=== PATIENT | male | born 1980 | race Two or more races ===

== ENCOUNTER 2020-01-11 21:19 | Emergency (ER) | payer OTHER, SELFPAY ==
[2020-01-11 21:23] VITALS: BP 171/95; PULSE 88; RESP 16; TEMP 36.7; O2SAT 99; BMI 34.4
--- NOTE | 2020-01-11 21:30 | ED.WOUNDLAC ---
HPI - Wound/Laceration General Chief Complaint: Wound/Laceration Stated Complaint: lac Time Seen by Provider: 01/11/20 21:23 Source: patient and occupational medicine specialist Mode of arrival: ambulatory Limitations: no limitations History of Present Illness HPI narrative: This is a 39-year-old male who presents after having sustained a laceration to the right index finger tip while cleaning a washer meat and does not recall his last tetanus shot. Otherwise patient states the bleeding is controlled and he has minimal pain. Related Data Allergies Allergy/AdvReac Type Severity Reaction Status Date / Time No Known Allergies Allergy Verified 01/11/20 21:25 Review of Systems Review of Systems: Pertinent positives and negatives as stated in HPI 10 point review of systems is otherwise negative. [facility] Past Medical History Source: nursing notes reviewed Medical History Patient denies significant medical history Social History Social History Advance Directives: No Physical Exam Vital Signs: Vital Signs: Vital Signs Temp Pulse Resp BP Pulse Ox 01/11/20 21:23 98.0 F 88 16 171/95 H 99 Body Mass Index 34.4 VITAL SIGNS: Reviewed. GENERAL: Well developed, well nourished, in no acute distress. HEAD: Normocephalic/atraumatic, EYES: PERRLA, EOMI intact without pain, no nystagmus/pallor/icterus noted EARS: Ext canals without abnormality, TMs non-bulging and non-erythematous NOSE: Nares patent bilateral OROPHARYNX: no oral lesions noted, posterior pharynx clear and non-erythematous without noted tonsillar enlargement/erythema/exudates NECK: Supple, no adenopathy LUNGS: Normal breath sounds. No adventitious sounds or accessory muscle use. SpO2<99> CARDIOVASCULAR: Regular rate and rhythm without noted murmurs, no JVD or lower extremity edema. ABDOMEN: Soft, non-tender, non-distended with bowel sounds. No rigidity. No guarding. No palpable masses or hernias noted MUSCULOSKELETAL: No tenderness, deformities, or effusions noted on gross inspection. EXTREMITIES: No cyanosis, clubbing or edema; RIGHT INDEX FINGER: There is a noted 2 cm laceration to the tip of the right index finger that is hemostatic with good capillary refill and sensation is intact. SKIN: Inspection of the skin reveals no rashes, ulcerations, jaundice, pallor, or petechiae. NEUROLOGIC: Alert and oriented x 4. Strength and sensation to light touch were grossly intact x 4. Course Course Course Narrative: This is a 39-year-old male with history and clinical presentation consistent with small laceration to the right index finger without gross contamination and patient tolerated repair of the laceration well and received a Tdap here in the emergency department. He was instructed return in 7 days for removal of the sutures. Procedures Laceration Laceration 1: Site: hand ( right index finger) Side (If applicable): right Size (cm): 2 Description: linear Depth: simple, single layer Local Anesthetic: lidocaine 2% Amount of anesthesia used (mL): 5 Pre-repair: wound explored, irrigated extensively and deep structures intact Skin layer closed with: nylon Size (cm): 4-0 Number of sutures: 3 Technique: simple, interrupted Discharge Plan Discharge Clinical Impression: Laceration Patient Disposition: Home, Self-Care Instructions: Finger Laceration (ED) Additional Instructions: 1. Tylenol 1000 mg, por v?a oral, cada 6 horas seg?n sea necesario para controlar el dolor. No exceda los 4000 mg en 24 horas. 2. Ibuprofeno 400 mg, por v?a oral con leche o alimentos, cada 6 horas seg?n sea necesario para controlar el dolor. 3. Puede limpiar la herida con agua y jab?n y luego secarla suavemente con la aplicaci?n de un nafisa?ento antibi?katherine. 4. Regrese a jerez proveedor de atenci?n primaria o al departamento de emergencias para que le retiren las suturas en 7 d?as. El paciente y / o la odalis reconocen carmen comprendido los resultados (seg?n corresponda), el diagn?stico, el plan de tratamiento, la necesidad de seguimiento y los s?ntomas que deber?an impulsar el regreso a la libertad de emergencias. Referrals: Beatrice Alba MD [Primary Care Provider] - 2 days ( suture removal in 7 days from right index finger. Patient received Tdap here in the emergency department) Print Language: Occitan
[2020-01-11] MEDS: Lidocaine HCl 2 % MPF 5 ML VIAL INFILTRATI (21:58)
== END 2020-01-11 22:10 | disposition home or self-care (01) ==
PROVIDERS: Emergency Provider Student in an Organized Health Care Education/Training Program; PCP Internal Medicine
DX: S61.210A Laceration without foreign body of right index finger without damage to nail, initial encounter (principal); S60.511A Abrasion of right hand, initial encounter; M79.644 Pain in right finger(s); W31.89XA Contact with other specified machinery, initial encounter; Y93.89 Activity, other specified; Y92.9 Unspecified place or not applicable; Y99.0 Civilian activity done for income or pay; Z23 Encounter for immunization
CPT/HCPCS: 12001; 90471; 90715; 99283; 99284

== ENCOUNTER 2020-01-18 09:16 | Emergency (ER) | payer OTHER, SELFPAY ==
--- NOTE | 2020-01-18 10:03 | ED_ITS ---
HPI - General Adult General Chief complaint: Wound/Laceration Stated complaint: suture removal Time Seen by Provider: 01/18/20 10:02 Source: patient, old records reviewed and sign language interpreter Mode of arrival: ambulatory Limitations: no limitations History of Present Illness complaint: suture removal Onset (ago): week(s) (1) Location: right and upper extremity (index finger 3 sutures) Radiation: non-radiation Relieving factors: none Exacerbating factors: none Associated symptoms: denies other symptoms Treatments prior to arrival: other (sutured 7 days ago) Related Data Allergies Allergy/AdvReac Type Severity Reaction Status Date / Time No Known Allergies Allergy Verified 01/11/20 21:25 Review of Systems Review of Systems: Constitutional : No Fever, No Chills ENT/Mouth : No sore throat, No Rhinorrhea Eyes: No Eye Pain, No Swelling, No Redness Cardiovascular : No Chest Pain, No SOB Respiratory : No Cough, No Sputum Musculoskeletal : No joint pain, No Myalgias, No Joint Swelling Skin : No Skin Lesions, no skin rash PMFSH Past Medical History Medical History Patient denies significant medical history Social History Social History (Updated 01/18/20 @ 10:06 by Lexii Claire DO) Smoking Status: Never smoker Use of substances other than those prescribed or required for medical reasons: No Advance Directives: No Advance Directives Information Provided: No Physical Exam Vital Signs: Appearance: Alert. Oriented X3. No acute distress. Neck: Normal inspection. Neck supple. CVS: Pulses normal. Respiratory: No respiratory distress. Breath sounds normal. Abdomen: Soft and nontender. Skin: Skin warm and dry. Normal skin color. Normal skin turgor. index finger 3 sutures c/d/i, well healed no signs of infection Neuro: Oriented X 3. No motor deficit. No sensory deficit. Procedures Procedure Narrative Procedure Narrative: verbal consent, removed 3 sutures R tip of index finger, c/d/i ws avulsion injury, no signs of infection, cleansed with betadine, bandaid applied, given wound care instructions Discharge Plan Discharge Clinical Impression: Encounter for removal of sutures Patient Disposition: Home, Self-Care Instructions: Stitches Removal (ED) Additional Instructions: return to ED for any worsening symptoms or concerns for the next 5 days wear a bandaid, do not soak area in dishes/pool, okay to shower and wash hands, monitor for signs of redness, fevers, drainage Print Language: Bruneian
[2020-01-18 10:04] VITALS: BP 157/102; PULSE 81; RESP 18; TEMP 37.2; O2SAT 97; BMI 29.2
--- NOTE | 2020-01-18 10:07 | PC.NURSE ---
DR MATTHEWS AT BEDSIDE REMOVED THREE STITCHES FROM THE RIGHT POINTER FINGER, PT DENIES PAIN AT THIS TIME
== END 2020-01-18 10:12 | disposition home or self-care (01) ==
PROVIDERS: Emergency Provider Emergency Medicine; PCP Internal Medicine
DX: Z48.02 Encounter for removal of sutures (principal)
CPT/HCPCS: 99283

== ENCOUNTER 2021-04-28 08:54 | Outpatient (REF) | payer OTHER, SELFPAY ==
[2021-04-28 09:34] LABS: Hematocrit 46.9 % (42.0-52.0); Hemoglobin 15.7 g/dl (14.0-18.0); Mean Corpuscular HGB Conc 33.5 g/dl (31.0-36.0); Mean Corpuscular Hemoglobin 28.2 pg (27.0-33.0); Mean Corpuscular Volume 84.2 fL (80.0-98.0); Mean Platelet Volume 10.8 fL (9.4-12.4); Platelet Count 215 X10*3/uL (160-400); Red Blood Count 5.57 X10*6/uL (4.60-5.80); Red Cell Distribution Width 13.4 % (11.0-16.0); White Blood Count 5.9 X10*3/uL (4.8-10.8)
[2021-04-28 09:47] LABS: Estimated Average Glucose 120 mg/dL; Hemoglobin A1c % 5.8 %
[2021-04-28 09:54] LABS: Alanine Aminotransferase 19 U/L (0-40); Albumin Level 4.5 g/dL (3.5-5.0); Alkaline Phosphatase 74 U/L (39-117); Anion Gap 10 (12-20); Aspartate Amino Transferase 19 U/L (5-37); Bilirubin Total 0.5 mg/dL (0.0-1.0); Blood Urea Nitrogen 9 mg/dL (9-16); Calcium 9.9 mg/dL (8.4-10.2); Carbon Dioxide 30 mmol/L (22-29); Chloride 107 mmol/L (96-108); Cholesterol 211 mg/dL; Estimated Glomerular Filt Rate > 60; Glucose Fasting 98 mg/dL (60-99); HDL Cholesterol 53 mg/dL; LDL Cholesterol Calculated 141 mg/dl; Potassium 5.6 mmol/L (3.3-5.1); Sodium 141 mmol/L (135-145); Total Protein 7.2 g/dL (6.5-8.0); Triglycerides 89 mg/dL
[2021-04-28 10:13] LABS: Syphilis Screen Nonreactive (Nonreactive)
[2021-04-28 10:14] LABS: TSH reflex Free T4 1.06 uIU/mL (0.32-4.0)
[2021-04-28 10:15] LABS: HBS Num1 1.23 mIU/mL (0-7.99); HBc Num1 0.05 S/CO (0.00-0.79); HIV AB/AG Nonreactive (Nonreactive); HIV Num 1 0.07 S/CO (0.00-0.99); Hepatitis B Core Antibody Nonreactive (Nonreactive); ~HepC Num1 0.15 S/CO (0.00-0.79); ~Hepatitis B Surface Antibody NONREACTIVE (Nonreactive); ~Hepatitis C Antibody Nonreactive (Nonreactive)
[2021-04-28 10:21] LABS: HBsAGNum1 0.24 S/CO (0.00-0.99); Hepatitis B Surface Antigen Negative (Negative)
== END 2021-04-28 08:55 | disposition home or self-care (01) ==
LOC: HO.LAB 08:54
PROVIDERS: PCP Internal Medicine; Visit Provider Physician Assistant
DX: Z11.3 Encounter for screening for infections with a predominantly sexual mode of transmission (principal); Z11.4 Encounter for screening for human immunodeficiency virus [HIV]; Z13.29 Encounter for screening for other suspected endocrine disorder; E78.00 Pure hypercholesterolemia, unspecified
CPT/HCPCS: 36415; 80053; 80061; 83036; 84443; 85027; 86704; 86706; 86780; 86803; 87340; 87389

== ENCOUNTER 2023-05-10 07:52 | Outpatient (AMB) | payer OTHER, SELFPAY ==
--- NOTE | 2023-05-10 07:54 | A.OFFPC_ITS ---
Vital Signs 05/10/23 07:56 Height 5 ft 11 in Weight 213 lb BMI 29.7 BP 120/72 Blood Pressure Location Lt brachial Position Sitting Intake Visit Reasons: PE Intake Note: Patient here for a physical exam Sole Layer Required: No Accompanied by: Self / Same As Patient Allergies No Known Allergies Allergy (Verified 05/10/23 08:08) Medication List - Last Reconciled 05/10/23 by Beatrice Freitas MD omeprazole 20 mg PO DAILY 90 days valacyclovir 1,000 mg PO BID 7 days Tobacco use date assessed: 05/10/23 Dental Screening Dental Screen Date: 05/10/23 Did you have a dental visit in the last 12 months?: No Did you have a dental problem in the last 6 months where you did not have access to dental care?: No Was dental information given to patient?: Patient has dentist HPI HPI Comments History of Present Illness Details This is a 43-year-old male that comes for his physical exam. He severely dozed off while sitting and reading, watching TV, writing as a passenger in a car for 1 hour without a break and lying down to rest in the afternoon when circumstances permit with an [place] score Scale of 12. He also snores since 02/25/2023 and I will order sleep study. He also has some hearing loss and will have a hearing test. Has gain weight. Denies any chest pain or shortness of breath. REPLACED BY [facility] Medical History (Updated 05/10/23 @ 08:20 by Beatrice Freitas MD) Patient denies significant medical history Surgical History (Updated 05/10/23 @ 08:10 by Beatrice Freitas MD) H/O lumbar discectomy Family History Father Prostate cancer, Onset Age: 56 Mother No problems noted. 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 1. Little interest or pleasure in doing things: not at all 2. Feeling down, depressed, or hopeless: not at all 3. Trouble falling or staying asleep, or sleeping too much: not at all 4. Feeling tired or having little energy: not at all 5. Poor appetite or overeating: not at all 6. Feeling bad about yourself - or that you are a failure or have let yourself or your family down: not at all 7. Trouble concentrating on things, such as reading the newspaper or watching television: not at all 8. Moving or speaking so slowly that other people could have noticed. Or the opposite - being so fidgety or restless that you have been moving around a lot more than usual: not at all 9. Thoughts that you would be better off or of hurting yourself in some way: not at all Total score: 0 Depression Screening Interpretation: Negative Depression Screening Done: Yes 60913 - PHQ-9 Billing: Yes Source: Developed by Drs. Duke Waterman, Zamzam Araya, Johann Jones and colleagues, with an educational brittney from [employer]. Thrive Questionnaire Date Thrive assessed: 05/10/23 I am a: Patient What is your living situation today?: I have a steady place to live Within the past 12 months, did the food you bought not last and you didn't have the money to get more?: Never true Within the past 12 months, did you worry whether your food would run out before you got money to buy more?: Never true Do you have trouble paying for medicines?: No Do you have trouble getting transportation to medical appointments?: No Do you have trouble paying your heating and electricity bill?: No Do you have trouble taking care of your child, family member or friend?: No Do you have trouble with day-to-day activities such as bathing, preparing meals, shopping, managing finances, etc.?: No Are you currently unemployed and looking for a job?: No Are you interested in more education?: No Please select the resources that you would like help with: None Currently or been in a relationship where the following occur: no concerns reported THRIVE Score: 0 AUDIT C Alcohol Use Questionnaire (AUDIT-C) 1. How often do you have a drink containing alcohol?: Monthly or less 2. How many drinks containing alcohol do you have on a typical day when you are drinking?: 1 or 2 3. How often do you have six or more drinks on one occasion?: Never Total Score: 1 Score Reviewed/Action Taken: No RAN-7 AMB Questionnaire RAN-7 Date RAN - 7 assessed: 05/10/23 Feeling nervous, anxious, or on edge: 0 = Not at all Not being able to stop or control worryin = Not at all Worrying too much about different things: 0 = Not at all Trouble relaxin = Not at all Being so restless that it is hard to sit still: 0 = Not at all Becoming easily annoyed or irritable: 0 = Not at all Feeling afraid as if something awful might happen: 0 = Not at all Total RAN-7 score (0-4 normal; 5-9 mild; 10-14 moderate; 15-21 severe): 0 Source: Developed by Drs. Duke Waterman, Zamzam Araya, Johann Jones and colleagues, with an educational brittney from [employer]. RAN-7 Assessment Billing RAN-7 Assessment Tool: RAN-7 Assessment 23131 Review of Systems Const All systems reviewed & are unremarkable except as noted in HPI and below Eyes Reports no additional complaints, Denies change in vision and Denies other visual disturbances ENT Reports hearing loss Card Denies chest pain at rest, Denies chest pain with activity, Denies edema, Denies irregular heart rhythm, Denies claudication, Denies dyspnea, Denies dyspnea on exertion, Denies orthopnea, Denies paroxysmal nocturnal dyspnea and Denies slow heart rate Resp Denies cough, Denies dyspnea and Denies dyspnea on exertion GI Denies abdominal pain, Denies change in bowel habits, Denies excessive flatus, Denies nausea and Denies vomiting Denies urinary hesitancy, Denies urinary incontinence and Denies urinary urgency Musc Denies abnormal gait, Denies atrophy, Denies deformity and Denies limited range of motion Skin/Breast Denies bleeding lesions, Denies changing lesions and Denies rash Neuro Denies abnormal gait, Denies behavioral changes, Denies confusion and Denies lack of coordination Psych Denies behavioral changes and Denies confusion Physical exam (Primary Care) Vital Signs: Last Vital Signs BP 120/72 05/10/23 07:56 BMI result Body Mass Index 29.7 Tobacco/Smoking Status: Tobacco use Status Tobacco use date assessed 05/10/23 05/10/23 08:01 Patient Tobacco Use Status Never used Tobacco 05/10/23 08:11 e-Cigarette/Vaping Use Never Used 05/10/23 08:11 PHQ-9: PHQ-9 Score PHQ-9: Total score 0 05/10/23 08:12 Depression Screening Interpretation: Negative Thrive Assessment: Date of Thrive Assessment Date Thrive assessed 05/10/23 05/10/23 08:01 Currently or been in a relationship where the following occur: no concerns reported Const General: No confusion Orientation/consciousness: patient oriented x3 and No confusion HENMT Head: Yes normal to inspection, Yes normocephalic and Yes atraumatic Ears: external ears normal Eyes General: appearance normal, both eyes and all related structures Eyelids: Yes eyelids normal Conjunctivae: conjunctivae normal Neck Neck: Yes normal visual inspection and Yes supple Resp Effort & Inspection: normal respiratory effort Auscultation: clear to auscultation bilaterally Cardio Jugular venous distension: no JVD Rate: regular rate Rhythm: regular rhythm Heart sounds: S1 normal heart sound present and S2 normal heart sound present GI Inspection: Yes normal to inspection Palpation (GI): Soft to palpation and nontender Auscultation: normal bowel sounds Skin General skin exam: no rashes or lesions noted Neuro General: patient oriented x3, no focal motor deficits and No confusion Extrem General: Yes full ROM Psych Appearance: grossly normal Assessment and Plan Assessment & Plan (1) Annual physical exam: Code(s): Z00.00 - Encounter for general adult medical examination without abnormal findings Plan: Repeat in a year. Orders: Orders Lipid Panel Today E78.5 - Hyperlipidemia, unspecified, Z00.00 - Encounter for general adult medical examination without abnormal findings RT home sleep study Today R40.0 - Somnolence Comprehensive [place]. Panel Fast Today Z00.00 - Encounter for general adult medi ninfa examination without abnormal findings ECG 12 lead EKG Today E87.5 - Hyperkalemia HIV Ab/Ag Today Z11.3 - Encounter for screening for infections with a predominantly sexual mode of transmission Referrals Speech and Hearing Referral H91.90 - Unspecified hearing loss, unspecified ear Medications: Refilled omeprazole 20 mg PO DAILY 90 days 90 caps 3RF H93.11 - Tinnitus, right ear valacyclovir 1,000 mg PO BID 7 days 14 tabs 2RF Coding Level of Care Code Est Pt Prev Care 40-64y(61811) Diagnoses Annual physical exam Z00.00 Additional Codes RNA-7 Assessment Billing - RAN-7 Assessment Tool: RAN-7 Assessment 19339 ([id number]) Time Spent (min) 32
[2023-05-10 07:56] VITALS: BP 120/72; BMI 29.7
== END 2023-05-10 08:21 | disposition home or self-care (01) ==
PROVIDERS: PCP Internal Medicine; Visit Provider Internal Medicine
DX: Z00.00 Encounter for general adult medical examination without abnormal findings (principal)
CPT/HCPCS: 99396

== ENCOUNTER → 2023-05-12 07:23 | Outpatient (REF) | payer OTHER, SELFPAY ==
--- NOTE | 2023-05-12 07:29 | ECG_ITS ---
Test Reason : E87.5 - Hyperkalemia Blood Pressure : / mmHG Vent. Rate : 060 BPM Atrial Rate : 060 BPM P-R Int : 144 ms QRS Dur : 088 ms QT Int : 390 ms P-R-T Axes : 051 039 011 degrees QTc Int : 390 ms Normal sinus rhythm Normal ECG No previous ECGs available Referred By: Beatrice Freitas Electronically Signed By:JUNE MARK
[2023-05-12 08:42] LABS: Alanine Aminotransferase 27 U/L (0-40); Alkaline Phosphatase 80 U/L (39-117); Anion Gap 10 (12-20); Aspartate Amino Transferase 19 U/L (5-37); Bilirubin Total 0.5 mg/dL (0.0-1.0); Blood Urea Nitrogen 11 mg/dL (9-16); Calcium 8.7 mg/dL (8.4-10.2); Carbon Dioxide 25 mmol/L (22-29); Chloride 110 mmol/L (96-108); Cholesterol 233 mg/dL (<200); Estimated Glomerular Filt Rate > 60; Glucose Fasting 97 mg/dL (60-99); HDL Cholesterol 47 mg/dL (>40); LDL Cholesterol Calculated 168 mg/dL (<100); Potassium 4.2 mmol/L (3.3-5.1); Sodium 141 mmol/L (135-145); Total Protein 6.8 g/dL (6.5-8.0); Triglycerides 92 mg/dL (<150)
[2023-05-12 09:15] LABS: HIV AB/AG Nonreactive (Nonreactive); HIV Num 1 0.05 S/CO (0.00-0.99)
== END ==
LOC: HO.CARD 07:23
PROVIDERS: PCP Internal Medicine; Visit Provider Internal Medicine
DX: Z00.00 Encounter for general adult medical examination without abnormal findings (principal); Z11.3 Encounter for screening for infections with a predominantly sexual mode of transmission; Z11.4 Encounter for screening for human immunodeficiency virus [HIV]; E87.5 Hyperkalemia; E78.5 Hyperlipidemia, unspecified
CPT/HCPCS: 36415; 80053; 80061; 87389; 93005

== ENCOUNTER → 2023-05-12 07:29 | Outpatient (BNV) | payer OTHER, SELFPAY | PROVIDERS: PCP Internal Medicine; Visit Provider Internal Medicine | DX: E87.5 Hyperkalemia (principal) | CPT/HCPCS: 93010 ==

== ENCOUNTER → 2023-06-21 15:54 | Outpatient (REF) | payer OTHER, SELFPAY | LOC: HO.SL 15:54 | PROVIDERS: PCP Internal Medicine; Visit Provider Internal Medicine | DX: G47.33 Obstructive sleep apnea (adult) (pediatric) (principal); R40.0 Somnolence | CPT/HCPCS: 95806 ==

== ENCOUNTER → 2023-06-21 16:01 | Outpatient (BNV) | payer OTHER, SELFPAY | PROVIDERS: PCP Internal Medicine; Visit Provider Internal Medicine | DX: G47.33 Obstructive sleep apnea (adult) (pediatric) (principal) | CPT/HCPCS: 95806 ==

== ENCOUNTER 2023-07-20 08:30 | Outpatient (REF) | payer OTHER, SELFPAY | END 2023-07-20 08:31 | disposition home or self-care (01) | LOC: HO.SH 08:30 | PROVIDERS: Visit Provider Internal Medicine | DX: Z01.118 Encounter for examination of ears and hearing with other abnormal findings (principal); H90.3 Sensorineural hearing loss, bilateral; H93.11 Tinnitus, right ear | CPT/HCPCS: 92557; 92567; 92588 ==

== ENCOUNTER 2024-05-15 08:37 | Outpatient (AMB) | payer OTHER, SELFPAY ==
--- NOTE | 2024-05-15 08:41 | A.OFFPC_ITS ---
Vital Signs 05/15/24 08:42 Height 5 ft 11 in Weight 219 lb BMI 30.5 BP 130/70 Blood Pressure Location Lt brachial Position Sitting Intake Visit Reasons: PE Intake Note: Patient here for a physical exam, c/o back pain, rash on head Gas System Operator Required: Yes Gas System Operator Language: Ward Helper Name: Beatrice Freitas MD Information Interpreted: non-clinical & clinical Accompanied by: Self / Same As Patient Allergies No Known Allergies Allergy (Verified 05/15/24 08:58) Medication List - Last Reconciled 05/15/24 by Beatrice Freitas MD omeprazole 20 mg PO DAILY 90 days valacyclovir 1,000 mg PO BID 7 days Tobacco use date assessed: 05/15/24 Dental Screening Dental Screen Date: 05/15/24 Did you have a dental visit in the last 12 months?: No Did you have a dental problem in the last 6 months where you did not have access to dental care?: No Was dental information given to patient?: Patient has dentist HPI HPI Comments History of Present Illness Details The patient is a 44-year-old male presenting for an annual physical examination. He reports a history of sciatica with pain radiating to his left leg, which originated after a back surgery in 1997. The symptoms include pain and numbness primarily in the left leg. He also complains of hemorrhoids, without recent episodes of bleeding. The patient has been managing GERD symptoms effectively with omeprazole. His cholesterol levels are elevated, but treatment thresholds are not met according to the [place] Risk Score of 4%. Has seborrheic dermatitis of scalp and would like dermatology referral. Family history is significant for prostate cancer in the father. The patient has not had a colonoscopy, though he is at screening age. He keeps current with vaccinations, with the last tetanus booster due in 2029. - Tetanus booster last administered in ; next due in 2029 - [place] Risk Score calculated at 4% , indicating low cardiovascular risk - Recommended initial colorectal cancer screening by colonoscopy - Discussed lifestyle modifications for cholesterol management, including diet and exercise PFSH Surgical History H/O lumbar discectomy Family History Father Prostate cancer, Onset Age: 56 Mother No problems noted. 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 1. Little interest or pleasure in doing things: not at all 2. Feeling down, depressed, or hopeless: not at all 3. Trouble falling or staying asleep, or sleeping too much: not at all 4. Feeling tired or having little energy: not at all 5. Poor appetite or overeating: not at all 6. Feeling bad about yourself - or that you are a failure or have let yourself or your family down: not at all 7. Trouble concentrating on things, such as reading the newspaper or watching television: not at all 8. Moving or speaking so slowly that other people could have noticed. Or the opposite - being so fidgety or restless that you have been moving around a lot more than usual: not at all 9. Thoughts that you would be better off or of hurting yourself in some way: not at all Total score: 0 Depression Screening Interpretation: Negative Depression Screening Done: Yes 85950 - PHQ-9 Billing: Yes Source: Developed by Drs. Duke Waterman, Zamzam Araya, Johann Jones and colleagues, with an educational brittney from [employer]. Thrive Questionnaire Date Thrive assessed: 05/15/24 I am a: Patient What is your living situation today?: I have a steady place to live Within the past 12 months, did the food you bought not last and you didn't have the money to get more?: Sometimes True Within the past 12 months, did you worry whether your food would run out before you got money to buy more?: Sometimes True Do you have trouble paying for medicines?: No Do you have trouble getting transportation to medical appointments?: No Do you have trouble paying your heating and electricity bill?: No Do you have trouble taking care of your child, family member or friend?: No Do you have trouble with day-to-day activities such as bathing, preparing meals, shopping, managing finances, etc.?: No Are you currently unemployed and looking for a job?: No Are you interested in more education?: Yes Please select the resources that you would like help with: None Currently or been in a relationship where the following occur: Controlled Financially THRIVE Score: 3 AUDIT C Alcohol Use Questionnaire (AUDIT-C) 1. How often do you have a drink containing alcohol?: 2-4 times a month 2. How many drinks containing alcohol do you have on a typical day when you are drinking?: 1 or 2 3. How often do you have six or more drinks on one occasion?: Never Total Score: 2 Score Reviewed/Action Taken: No RAN-7 AMB Questionnaire RAN-7 Date RAN - 7 assessed: 05/15/24 Feeling nervous, anxious, or on edge: 1 = Several days Not being able to stop or control worryin = Several days Worrying too much about different things: 1 = Several days Trouble relaxin = Several days Being so restless that it is hard to sit still: 0 = Not at all Becoming easily annoyed or irritable: 0 = Not at all Feeling afraid as if something awful might happen: 0 = Not at all Total RAN-7 score (0-4 normal; 5-9 mild; 10-14 moderate; 15-21 severe): 4 Source: Developed by Drs. Duke Waterman, Zamzam Araya, Johann Jones and colleagues, with an educational brittney from [employer]. RAN-7 Assessment Billing RAN-7 Assessment Tool: RAN-7 Assessment 14442 Review of Systems Const All systems reviewed & are unremarkable except as noted in HPI and below Card Denies chest pain at rest, Denies chest pain with activity, Denies edema, Denies irregular heart rhythm, Denies claudication, Denies dyspnea, Denies dyspnea on exertion, Denies orthopnea, Denies paroxysmal nocturnal dyspnea and Denies slow heart rate Resp Denies cough, Denies dyspnea and Denies dyspnea on exertion GI Denies abdominal pain, Denies change in bowel habits, Denies excessive flatus, Denies nausea and Denies vomiting Denies urinary hesitancy, Denies urinary incontinence and Denies urinary urgency Skin/Breast Reports lesions Neuro Denies lack of coordination Physical exam (Primary Care) Vital Signs: Last Vital Signs BP 130/70 05/15/24 08:42 BMI result Body Mass Index 30.5 BMI Assessment/Plan discussion: High BMI High, discussed plan: lifestyle, weight reduction and dietary Tobacco/Smoking Status: Tobacco use Status Tobacco use date assessed 05/15/24 05/15/24 08:46 Patient Tobacco Use Status Never used Tobacco 05/15/24 08:46 e-Cigarette/Vaping Use Never Used 05/15/24 08:46 PHQ-9: PHQ-9 Score PHQ-9: Total score 0 05/15/24 08:46 Depression Screening Interpretation: Negative Thrive Assessment: Date of Thrive Assessment Date Thrive assessed 05/15/24 05/15/24 08:46 Currently or been in a relationship where the following occur: Controlled Financially Const Orientation/consciousness: patient oriented x3 HENMT Head: Yes normal to inspection, Yes normocephalic and Yes atraumatic Ears: external ears normal Eyes General: appearance normal, both eyes and all related structures Eyelids: Yes eyelids normal Conjunctivae: conjunctivae normal Neck Neck: Yes normal visual inspection and Yes supple Resp Effort & Inspection: normal respiratory effort Auscultation: clear to auscultation bilaterally Cardio Jugular venous distension: no JVD Rate: regular rate Rhythm: regular rhythm Heart sounds: S1 normal heart sound present and S2 normal heart sound present GI Inspection: Yes normal to inspection Palpation (GI): Soft to palpation and nontender Auscultation: normal bowel sounds Skin General skin exam: no rashes or lesions noted Neuro General: patient oriented x3 and no focal motor deficits Extrem General: Yes full ROM Psych Appearance: grossly normal Coding Level of Care Code Est Pt Level 3 (17584) Est Pt Prev Care 40-64y(03738) Diagnoses Annual physical exam Z00.00 Pure hypercholesterolemia E78.00 Hyperlipidemia type: pure hypercholesterolemia Seborrheic dermatitis of scalp L21.9 Left sided sciatica M54.32 Additional Codes PHQ-9 - 19805 - PHQ-9 Billing: Yes ([id number]) RAN-7 Assessment Billing - RAN-7 Assessment Tool: RAN-7 Assessment 18939 ([id number]) Time Spent (min) 35 Assessment & Plan Assessment & Plan (1) Annual physical exam: Code(s): Z00.00 - Encounter for general adult medical examination without abnormal findings Category: Medical (2) HLD (hyperlipidemia): Code(s): E78.5 - Hyperlipidemia, unspecified Category: Medical Qualifiers: Hyperlipidemia type: pure hypercholesterolemia Qualified Code(s): E78.00 - Pure hypercholesterolemia, unspecified (3) Seborrheic dermatitis of scalp: Code(s): L21.9 - Seborrheic dermatitis, unspecified Category: Medical (4) Left sided sciatica: Code(s): M54.32 - Sciatica, left side Category: Medical Plan The patient's hyperlipidemia will be managed with annual monitoring. We have opted not to initiate medication since the [place] Risk Score is 4%. Lifestyle modifications, especially diet and exercise, were recommended. We will schedule the patient for a colonoscopy at the hospital to begin the recommended screening for colorectal cancer. For sciatica, gabapentin was prescribed to be started at bedtime, with a gradual increase to a potential three times daily if tolerated due to its sedative properties. The patient is aware of the need to monitor for drowsiness. There are no current interventions required for hemorrhoids without symptoms. Patient was informed and verbally consented to the use of an ambient scribe for clinic note documentation during this visit. I discussed with the patient the importance of beginning colorectal cancer screening now that he is 44 years old, as well as weighing the options for when and how to conduct this screening. We reviewed his elevated cholesterol and the management plan, emphasizing lifestyle modifications such as diet and exercise. I explained the [place] Risk Score calculation and its implications for current treatment decisions. For sciatica, I provided a detailed explanation of gabapentin's use, potential side effects, specifically sedation, and the need to start treatment at night to assess tolerance. Lastly, we discussed the risk factors associated with his family history of prostate cancer, ensuring understanding of the need for continued vigilance. Orders: Orders XR lumbar spine 2-3V Today M54.32 - Sciatica, left side Comprehensive [place]. Panel Fast Today E78.00 - Pure hypercholesterolemia, unspecified Lipid Panel Today E78.5 - Hyperlipidemia, unspecified Referrals Open Access Screening Colonoscopy Referral Z12.12 - Encounter for screening f or malignant neoplasm of rectum Pain Management Referral M54.32 - Sciatica, left side Dermatology Referral L21.9 - Seborrheic dermatitis, unspecified Medications: New gabapentin 300 mg PO TID 30 days 90 caps 0RF selenium sulfide 1% (Dandruff Shampoo (selenium sulfide)) lather into wet hair; leave in place for approximately 3 mins ; rinse 5 mL topical 2XW 14 days 207 mL 1RF Patient Instructions: - Initiate the gabapentin prescription as directed, starting with an evening dose, and monitor for drowsiness. - Schedule the colonoscopy procedure as discussed at the hospital. - Continue to manage dietary habits and engage in regular physical activity to address cholesterol levels. - Report any new or worsening symptoms related to sciatica or hemorrhoids to the office immediately. - Maintain a schedule for follow-up visits to monitor cholesterol levels annually.
[2024-05-15 08:42] VITALS: BP 130/70; BMI 30.5
--- OUTSIDE RECORDS SUMMARY | 2024-05-15 09:14 | XMS_ITS | Encounter Summary ---
Author Organization [facility] Address [address] [place] [address] [address] [place] [address] Care Team Providers Care Cryptological Technician Name Role Phone Unavailable Primary Care Provider Unavailabl e Encounter Details Date Type Department Care Team (Latest Contact Info) Description 11/29/2021 Abstract [facility] CONVERSIONS Dental, Provider, DDS Social History Tobacco Use Types Packs/Day Years Used Date Smoking Tobacco: Never Assessed Sex and Gender Information Value Date Recorded Sex Assigned at Male 01/10/2022 10:30 AM EDT Legal Sex Male 10:30 AM EDT Gender Identity Male 01/10/2022 10:30 AM EDT Sexual Orientation Straight 01/10/2022 10 :30 AM EDT documented as of this encounter Plan of Treatment Upcoming Encounters Date Type Department Care Team (Late st Contact Info) Description 06/14/2024 10:30 AM EDT Office Visit [facility] ADULT DENTAL [address] [place] [address] Mariano New DDS [address] [place] [address] 06/28/2024 9:00 AM EDT Office Visit [facility]ULT [facility] [address] [place] [address] Serene Hill [address] [place] [address] documented as of this encounter Visit Diagnoses Not on filedocumented in this encounter
--- OUTSIDE RECORDS SUMMARY | 2024-05-15 09:14 | XMS_ITS | Encounter Summary ---
Author Organization [facility] Address [address] [place] [address] [address] [place] [address] Care Team Providers Care Concrete Form Setter Name Role Phone Unavailable Primary Care Provider Unavailabl e Encounter Details Date Type Department Care Team (Latest Contact Info) Description 05/13/2020 Abstract [facility] CONVERSIONS Dental, Provider, DDS Social History Tobacco [...] Description 06/14/2024 10:30 AM EDT Office Visit [facility] ADULT DENTAL [address] [place] [address] Mariano New DDS [address] [place] [address] 06/28/2024 9:00 AM EDT Office Visit [facility] ADULT DENT[facility] [address] [place] [address] Serene Hill [address] [place] [address] documented as of this encounter Visit Diagnoses Not on filedocumented in this encounter
--- OUTSIDE RECORDS SUMMARY | 2024-05-15 09:14 | XMS_ITS | Encounter Summary ---
Author Organization [facility] Address [address] [place] [address] [address] [place] [address] Care Team Providers Care New Grad Rn Name Role Phone Unavailable Primary Care Provider Unavailabl e Reason for Visit * Reason Comments Scaling And Root Planing SAPNA WREN Encounter Details Date Type Department Care Team ([facility] st Contact Info) Description 05/08/2024 2:00 PM EST Office Visit [facility] ADULT DENTAL [address] [place] [address] Serene Hill [address] [place] [address] Periodontal disease (Primary Dx); Dental calculus; Defective dental zoroastrianism Social History Tobacco Use Types Packs/Day Years Used Date Smoking Tobacco: Never Passive Smoke Exposure: Never Smokeless Tobacco: Never Alcohol Use Standard Drinks/Week Comments Never 0 (1 standard drink = 0.6 oz pur e alcohol) Sex and Gender Information Value Date Recorded Sex Assigned at Male 01/10/2022 10:30 AM EDT Legal Sex Male 10:30 AM EDT Gender Identity Male 01/10/2022 10:30 AM EDT Sexual Orientation Straight 01/10/2022 10 :30 AM EDT documented as of this encounter Last Filed Vital Signs Vital Sign Reading Time Taken Comments Blood Pressure 128/82 05/08/2024 2:06 PM EST Pulse - - Temperature - - Respiratory Rate - - Oxygen Saturation - - Inhaled Oxygen Concentration - - Weight - - Height - - Body Mass Index - - documented in this encounter Progress Notes * Serene Hill - 05/08/2024 2:00 PM EST Patient ID: Ambrose Lopes is a 44 y.o. male. Time Out: Timeout Date: 05/08/24, Timeout Time: 1411 (SRP UL, LL quads) Location: [facility] Tooth: Maxilla and Mandible Procedure: Scaling and Root Planing, Limited exam by Shaq Ricardo Verified the above with patient, assistant therapy aide, and provider. Confirmed via patient's chart, intraorally and by radiographs. Paper Products Supervisor: not applicable Medical Hx: Vitals: Blood pressure 128/82. Medications, Med Hx reviewed with patient and updated in chart. Pt's C/C: Pain #6 at the root Facial. Dr. New did Limited Exam and DX caries on #6 F, F5. Dr New to do zoroastrianism. Treatment Provided Dental procedures in this visit D4342 - PERIODONTAL SCALING AND ROOT PLANING - 1 TO 3 TEETH PER QUADRANT UL (Completed) Service provider: Serene Hill [place] provider: Mariano New DDS D4342 - PERIODONTAL SCALING AND ROOT PLANING - 1 TO 3 TEETH PER QUADRANT LL (Completed) Service provider: Serene Hill [place] provider: Mariaon New DDS D1330 - ORAL HYGIENE INSTRUCTIONS (Completed) Service provider: Serene Hill [place] provider: Mariano New DDS D9450 - CASE PRESENTATION, DETAILED AND EXTENSIVE TREATMENT PLANNING (Completed) Service provider: Serene Hill [place] provider: Mariano New DDS Topical: 20% Benzocaine Anesthesia: 2% Lidocaine (Xylocaine) w/ 1:100,000 epinephrine Number of Cartridges: 1 Injection Type: Buccal infiltration, Palatal infiltration, Mental nerve block, and mandibular incisal. Confirmed profound anesthesia. Oral Cancer Screening: No lesions Head/Neck Exam: No Lesions Instruments Used: Ultrasonic Scalers and Hand Scalers Fluoride: N/A Calculus: Light and Moderate Plaque: Light and Moderate Stain: discolored teeth at exposed roots Bleeding: Light and Moderate Gingiva: Recession- generalized and pink OH: Fair Oral hygiene instructions provided to patient including brushing technique and flossing. Recommendations: [place] two times daily, modified josé technique, Floss daily, Electric toothbrush, Soft bristle toothbrush, [place] Tongue, Anti-sensitivity toothpaste Recall Frequency: SRP UR, LR quads NV: SRP UR, LR quads and Dr. New for [place]. Hygienist: Serene Hill RDH * Mariano New DDS - 05/08/2024 2:00 PM EST Dental procedures in this visit D4342 - PERIODONTAL SCALING AND ROOT PLANING - 1 TO 3 TEETH PER QUADRANT UL (Completed) Service provider: Serene Hill Billing provider: Mariano New DDS D4342 - PERIODONTAL SCALING AND ROOT PLANING - 1 TO 3 TEETH PER QUADRANT LL (Completed) Service provider: Serene Hill [place] provider: Mariano New DDS D1330 - ORAL HYGIENE INSTRUCTIONS (Completed) Service provider: Serene Morse provider: Mariano New DDS D9450 - CASE PRESENTATION, DETAILED AND EXTENSIVE TREATMENT PLANNING (Completed) Service provider: Serene Morse provider: Mariano New DDS Patient ID: Ambrose Lopes is a 44 y.o. male. Time Out: Timeout Date: 05/08/24, Timeout Time: 1411 (SRP UL, LL quads) Location: [facility] Tooth: Maxilla Procedure: Exam, X-rays, and Prophylaxis Verified the above with patient, assistant therapy aide, and provider. Confirmed via patient's chart, intraorally and by radiographs. Paper Products Supervisor: not applicable Chief Complaint Patient presents with Scaling And Root Planing UL, LL quads Medical Hx: Vitals: Blood pressure 128/82. Past Medical History: Diagnosis Date GERD (gastroesophageal reflux disease) Glaucoma Periodontal disease Medications: Outpatient Encounter Medications as of 05/08/2024 Medication Sig Dispense Refill dorzolamide-timolol (Cosopt) 2-0.5 % ophthalmic solution PLACE 1 DROP IN THE RIGHT EYE TWICE DAILY,10-15 MINUTES AFTER brimonidine latanoprost (Xalatan) 0.005 % ophthalmic solution PLACE 1 DROP IN THE RIGHT EYE AT BEDTIME omeprazole (PriLOSEC) [address] capsule Take 1 capsule by mouth Once per day. No facility-administered encounter medications on file as of 05/08/2024. Subjective: Pain: not present mild discomfort on # 6 Duration: >5 days Objective: Tooth: #6 and #16 Radiographs Taken: Result after SRP Radiographic Findings: Partially erupted # 16 Clinical Findings: Defective resin on # 6 Swelling: NO Endo Testing: N/A Perio: Due for SRP left side Other Findings: Restore # 6 V buccal Diagnosis: Defective zoroastrianism Assessment/Plan: AARON X Rays SRP Viri Prescriptions: No Pt tolerated procedure well, all questions answered. Dismissed in good condition. NV: , DANIELA Superintendent Communications: Serene Hill Dentist: Mariano New DDS documented in this encounter Plan of Treatment Upcoming Encounters Date Type Department Care Team (Late st Contact Info) Description 06/14/2024 10:30 AM EDT Office Visit [facility] ADULT DENTAL [address] [place], [place] [id number] Mariano New DDS [address] [place] [address] 06/28/2024 9:00 AM EDT Office Visit [facility] ADULT DENT[facility] [address] [place] [address] Serene Hill [address] [place] [address] Scheduled Orders Name Type Priority Associated Diagnoses Orde r Schedule 6 FF(V) 6 FF(V) RESIN-BASED COMPOSITE - 1 SURF, ANTERIOR Dental Routine [address] arting 05/08/2024 ORAL HYGIENE INSTRUCTIONS Dental Routine 1 Occurrences starting 05/08/2024 CASE PRESENTATION, DETAILED AND EXTENSIVE TREATMENT PLANNING Dental Routine 1 Occurrences starting 05/08/2024 documented as of this encounter Procedures Procedure Name Priority Date/Time Associated Diagnosis Comments LL PERIODONTAL SCALING AND ROOT PLANING - 1 TO 3 TEETH PER QUADRANT Routine 05/08/2024 2:00 PM EST Periodontal disease Dental calculus UL PERIODONTAL SCALING AND ROOT PLANING - 1 TO 3 TEETH PER QUADRANT Routine 05/08/2024 2:00 PM EST Periodontal disease Dental calculus ORAL HYGIENE INSTRUCTIONS Routine 05/08/2024 2:00 PM EST Periodontal disease Dental calculus CASE PRESENTATION, DETAILED AND EXTENSIVE TREATMENT PLANNING Routine 05/08/2024 2:00 PM EST Periodontal disease Dental calculus 14 O COMPOSITE FILLING Routine 12:00 AM EST 28 B(V) COMPOSITE FILLING Routine 05/08/2024 12:00 AM EST 21 B(V) COMPOSITE FILLING Routine 05/08/2024 12:00 AM EST 20 B(V) COMPOSITE FILLING Routine 05/08/2024 12:00 AM EST 13 O COMPOSITE FILLING Routine 12:00 AM EST documented in this encounter Visit Diagnoses Diagnosis Periodontal disease- Primary Unspecified gingival and periodontal disease Dental calculus Accretions on teeth Defective dental zoroastrianism Unspecified unsatisfactory zoroastrianism of tooth documented in this encounter
--- OUTSIDE RECORDS SUMMARY | 2024-05-15 09:14 | XMS_ITS | Clinical Summary ---
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 Periodontal disease 03/18/2024 Dental calculus 03/18/2024 Generalized gingival recession 03/18/2024 Normal oral exam 02/16/2024 Encounters Date Type Department Care Team Description 05/08/2024 2:00 PM EST Office Visit [facility] [address] [place] [address] [address] Periodontal disease (Primary Dx); Dental calculus; Defective dental judaism 03/18/2024 10:00 AM EST Office Visit [facility] [address] [place] [address] [address] [place] Periodontal disease (Primary Dx); Dental calculus; Generalized gingival recession 03/15/2024 Telephone [facility] [address] [place] [address] Angel Hillaris 02/16/2024 3:30 PM EST Office Visit [facility] [address] [place] [address] Mariano New DDS Normal oral exam (Primary Dx) from Last 3 Months Immunizations Name Administration Dates Next Due INFLUENZA INJECTABLE QUADRIV ALANT CCIIV4 MDCK Multi-dose vial 01/09/2019 Influenza Injectable Quadriv alant Preservative Free IIV4 MDCK 12/09/2022,01/21/2022 Influenza injectable quadriv alent IIV4 with preservative 12/14/2017,12/16/2016 Influenza injectable quadrivalent preservative f ree 01/25/2021,12/19/2018 Pfizer Covid-19 Vaccine 12+ 02/19/2021 Tdap 01/11/2020,03/18/2016 Social History Tobacco Use Types Packs/Day Years Used Date Smoking Tobacco: Never Passive Smoke Exposure: Never Smokeless Tobacco: Never Tobacco Cessation:Counseling Given: No Alcohol Use Standard Drinks/Week Comments Never 0 (1 standard drink = 0.6 oz pur e alcohol) Sex and Gender Information Value Date Recorded Sex Assigned at Male 01/10/2022 10:30 AM EDT Legal Sex Male 10:30 AM EDT Gender Identity Male 01/10/2022 10:30 AM EDT Sexual Orientation Straight 01/10/2022 10 :30 AM EDT Last Filed Vital Signs Vital Sign Reading Time Taken Comments Blood Pressure 128/82 05/08/2024 2:06 PM EST Pulse - - Temperature - - Respiratory Rate - - Oxygen Saturation - - Inhaled Oxygen Concentration - - Weight - - Height - - Body Mass Index - - Plan of Treatment Upcoming Encounters Date Type Department Care Team (Late st Contact Info) Description 06/14/2024 10:30 AM EDT Office Visit [facility] [address] [place] [address] Mariano New DDS [address] [place] [address] 06/28/2024 9:00 AM EDT Office Visit [facility] [address] [place] [address] [address] [place] [address] Health Maintenance Due Date Last Done Comments CT Colonography 1979 Colonoscopy 1979 Colorectal Cancer Screening 1979 Depression Screening 1979 FIT DNA/Cologuard 1979 FIT 1979 FOBT 1979 HIV Screening 1979 Lipid Panel 1979 SDOH Screening 1979 Sigmoidoscopy 1979 Alcohol/Substance Use Screening 1991 Family Planning (PISQ) 1994 Hepatitis C Screening 1997 Hepatitis B Vaccines (1 of 3 - 19+ 3-dose series) 1998 COVID-19 Vaccine ( season) 2023 02/19/2021, 04/08/2020, 03/18/2020 Dental Oral Exam 08/17/2024 02/16/2024, , 04/02/2020, Additional history exists Dental Prophylaxis 09/16/2024 03/18/2024, 0 11/29/2021, 05/13/2020, Additional history exists Dental X-Ray: Bitewings 02/16/2025 02/16/20 24, 11/29/2021, 04/02/2020, Additional history exists Tobacco Screening 05/08/2025 05/08/2024 Dental X-Ray: Full Mouth 02/16/2027 024, 08/05/2022, 11/29/2021, Additional history exists Zoster Vaccines (1 of 2) 2029 DTaP/Tdap/Td Vaccines (3 - Td or Tdap) 01/10/2030 01/11/2020, 03/18/2016 RSV Patients and Patients Aged 60 years or older (1 - 1-dose 75+ series) 2054 Influenza Vaccine Completed 01/09/2024, , 01/21/2022, Additional history exists HIB Vaccines Aged Out No longer eligi ble based on patient's age to complete this topic HPV Vaccines Aged Out No longer eligi ble based on patient's age to complete this topic Hepatitis A Vaccines Aged Out No long er eligible based on patient's age to complete this topic IPV Vaccines Aged Out No longer eligi ble based on patient's age to complete this topic Meningococcal Vaccine Aged Out No nasir temi eligible based on patient's age to complete this topic Pneumococcal Vaccine: Pediatrics (0 to 5 Years) and At-Risk Patients (6 to 49) Years) Aged Out No longer eligible based on patient's age to complete this topic RSV under 20 months Aged Out No longe r eligible based on patient's age to complete this topic Rotavirus Vaccines Aged Out No longer eligible based on patient's age to complete this topic Procedures Procedure Name Priority Date/Time Associated Diagnosis Comments CASE PRESENTATION, DETAILED AND EXTENSIVE TREATMENT PLANNING Routine 05/08/2024 2:00 PM EST Periodontal disease Dental calculus ORAL HYGIENE INSTRUCTIONS Routine 05/08/2024 2:00 PM EST Periodontal disease Dental calculus LL PERIODONTAL SCALING AND ROOT PLANING - [...] O COMPOSITE FILLING Routine 12:00 AM EST CASE PRESENTATION, DETAILED AND EXTENSIVE TREATMENT PLANNING Routine 03/18/2024 10:00 AM EST Periodontal disease Dental calculus Generalized gingival recession ORAL HYGIENE INSTRUCTIONS Routine 03/18/2024 10:00 AM EST Periodontal disease Dental calculus Generalized gingival recession PROPHYLAXIS - ADULT Routine 03/18/2024 1 0:00 AM EST Periodontal disease Dental calculus PERIODIC ORAL EVALUATION - ESTABLISHED PATIENT Routine 02/16/2024 3:30 PM EST CASE PRESENTATION, DETAILED AND EXTENSIVE TREATMENT PLANNING Routine 02/16/2024 3:30 PM EST INTRAORAL - COMPLETE SERIES OF RADIOGRAPHIC IMAGES Routine 02/16/2024 3:30 PM EST from Last 3 Months Insurance [facility] [employer] STAND ADULT
--- OUTSIDE RECORDS SUMMARY | 2024-05-15 09:14 | XMS_ITS | Encounter Summary ---
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 Name Role Phone Unavailable Primary Care Provider Unavailabl e Encounter Details Date Type Department Care Team (Latest Contact Info) Description 10/29/2018 Abstract [facility] CONVERSIONS Dental, Provider, DDS Social History Tobacco [...] Description 06/14/2024 10:30 AM EDT Office Visit [facility] [address] [place] [address] Mariano New DDS [address] [place] [address] 06/28/2024 9:00 AM EDT Office Visit [facility] [address] [place] [address] [address] [place] [address] documented as of this encounter Visit Diagnoses Not on filedocumented in this encounter
== END 2024-05-15 09:17 | disposition home or self-care (01) ==
PROVIDERS: PCP Internal Medicine; Visit Provider Internal Medicine
DX: Z00.00 Encounter for general adult medical examination without abnormal findings (principal); E78.00 Pure hypercholesterolemia, unspecified; L21.9 Seborrheic dermatitis, unspecified; M54.32 Sciatica, left side

== ENCOUNTER → 2024-05-15 08:37 | Outpatient (BNVA) | payer OTHER, SELFPAY | PROVIDERS: PCP Internal Medicine; Visit Provider Internal Medicine | DX: Z00.01 Encounter for general adult medical examination with abnormal findings (principal); E78.00 Pure hypercholesterolemia, unspecified; L21.9 Seborrheic dermatitis, unspecified; M54.32 Sciatica, left side | CPT/HCPCS: 96127; 99212; 99396 ==

== ENCOUNTER 2024-05-16 06:43 | Outpatient (REF) | payer OTHER, SELFPAY ==
--- NOTE | ~2024-05-16 | XR_ITS ---
EXAMINATION: XR LUMBOSACRAL SPINE CLINICAL INFORMATION: M54.32 - Sciatica, left side COMPARISON: 12/29/2016. TECHNIQUE: Three views of the lumbosacral spine. FINDINGS: There is a trace levoconvex scoliosis. There is a normal lumbar lordosis. There is no subluxation. There are no fractures, compression deformities, or suspicious bone lesions. There is mild to moderate disc and facet degeneration L4-S1. Disc spaces otherwise preserved. Normal-appearing SI joints and sacrum. Mild vascular calcifications in the soft tissues. XR/XR lumbar spine 2-3V IMPRESSION: 1. No acute findings lumbar spine. 2. Mild to moderate degenerative spondylosis relatively confined to L4-S1. Electronically signed by: Kash Nur MD 05/20/2024 09:31 AM EDT
[2024-05-16 08:00] LABS: Alanine Aminotransferase 45 U/L (0-40); Albumin Level 4.2 g/dL (3.5-5.0); Alkaline Phosphatase 80 U/L (39-117); Anion Gap 10 (12-20); Aspartate Amino Transferase 38 U/L (5-37); Bilirubin Total 0.6 mg/dL (0.0-1.0); Blood Urea Nitrogen 13 mg/dL (9-16); Carbon Dioxide 26 mmol/L (22-29); Chloride 110 mmol/L (96-108); Cholesterol 238 mg/dL (<200); Estimated Glomerular Filt Rate > 60; Glucose Fasting 99 mg/dL (60-99); HDL Cholesterol 51 mg/dL (>40); LDL Cholesterol Calculated 171 mg/dL (<100); Potassium 4.4 mmol/L (3.3-5.1); Sodium 142 mmol/L (135-145); Total Protein 7.5 g/dL (6.5-8.0); Triglycerides 81 mg/dL (<150)
== END 2024-05-16 06:44 | disposition home or self-care (01) ==
LOC: HO.XRAY 06:43
PROVIDERS: PCP Internal Medicine; Visit Provider Internal Medicine
DX: M54.32 Sciatica, left side (principal); E78.5 Hyperlipidemia, unspecified; E78.00 Pure hypercholesterolemia, unspecified
CPT/HCPCS: 36415; 72100; 80053; 80061

== ENCOUNTER → 2024-05-16 07:07 | Outpatient (BNV) | payer OTHER, SELFPAY | PROVIDERS: PCP Internal Medicine; Visit Provider Radiology Diagnostic Radiology | DX: M54.32 Sciatica, left side (principal) | CPT/HCPCS: 72100 ==

== ENCOUNTER 2024-06-07 08:24 | Outpatient (AMB) | payer OTHER, SELFPAY ==
--- NOTE | 2024-06-07 08:32 | A.OFFVIS_ITS ---
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 He reports the onset of back pain radiating to the back of the left leg, beginning 2 months ago with no specific triggering event. The patient has a history of lumbar discectomy in [place] in 2015. He reports a pattern recognizable from his pre-surgical symptoms. 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 The patient indicates cold weather worsens his discomfort and affects his sleep. Gabapentin has been prescribed and recently started, following a stop in ibuprofen use. An X-ray reveals mild to moderate degenerative spondylosis relatively confined to L4-S1, with a plan for initial physical therapy before considering further imaging. Denies any fever or chills, abdominal or groin pain, weakness, foot drop, bladder or bowel dysfunction or saddle anesthesia. - Onset: Approximately 2 months ago, chronic low back pain. - Location: Originating in the lower back, radiating to the back of the left leg and into left calf. - Quality: Similar to pre-surgical symptoms; reminiscent of nerve compression. Pinching, stabbing, tightness, cramping, radiating. - Radiation: Extending to the back of the left leg. - Aggravating Factors: Bending, standing on left toe, physically demanding work, prolonged standing. - Relieving Factors: None specifically mentioned, although patient has begun gabapentin therapy. - Impact: Interferes with physical work, especially housekeeping tasks; affects sleep especially in colder conditions. 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 - Analgesia: Currently using gabapentin prescribed by PCP; previously used ibuprofen, now discontinued. - Adverse Effects: None specifically reported from gabapentin during the conversation. - Activities of Daily Living: Pain impacts physical work capability and sleep quality. - Aberrant Drug Related Behaviors: None reported or suspected; patient is compliant with medication use as directed. [facility] Medical History Daytime somnolence Seborrheic dermatitis of scalp GERD (gastroesophageal reflux disease) Hearing loss Tinnitus, right HLD (hyperlipidemia) Left sided sciatica Lumbar degenerative disc disease Surgical History H/O lumbar discectomy Family History Father Prostate cancer, Onset Age: 56 Mother No problems noted. 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 - Neurological: Denies numbness, tingling radiating to the calf, or muscle spasms. All systems reviewed & are unremarkable except as noted in HPI and below Physical Exam Vital Signs: Last Vital Signs Pulse 87 06/07/24 08:38 BP 132/85 06/07/24 08:38 Pulse Ox 97 06/07/24 08:38 Oxygen Delivery Method Room Air 06/07/24 08:38 BMI result Body Mass Index 30.4 General: Appears afebrile. Alert and oriented. Mood and affect appropriate. Follows and participates in conversation appropriately. Respiratory effort is unlabored. No cough. Able to transition from sit to stand unassisted. Ambulates with bilaterally normal heel strike and toe off, standing on toes on the left increases left back and left calf pain. General: Yes no CVA tenderness Back/Spine/Pelvis Other: Limited lumnbar ROM due to pain. No limping. Can flex forward to 70-75 degrees and extend to 5-10 degrees before experiencing lumbar pain. Demonstrates 5/5 strength of quadriceps bilaterally as well as flexion/dorsiflexion of bilateral feet against resistance. 2+ pedal pulses bilaterally. Straight leg rise with dorsiflexion negative bilaterally. +2 patellar and achilles reflexes bilaterally. Facet loading test positive bilaterally. Jessica sign, Dmitri?s, Pelvic compression and Stinchfield tests are negative bilaterally. No groin pain with I/E hip rotations. Valsalva maneuver negative. Back: no CVA tenderness Cervical Spine: cervical ROM normal and No Cervical spine tenderness Thoracic/Lumbar Spine: thoracic and lumbar spine normal to inspection, Thoracic/lumbar spine scar(s) (well healed lower lumbar spine, normal scarring), Lasegue's sign positive on the left and diffuse, pain with thoraco-lumbar ROM, paraspinal muscle tenderness, thoraco-lumbar ROM limited, No thoracic spinal te nderness and lumbar spinal tenderness (L4-S1) Pelvis: buttock tenderness on the left and no sciatic notch tenderness Sacroiliac joints: bilaterally nontender Neuro General: moves all extremities, Normal light touch and pain sensation, no focal motor deficits, CN's II-XI intact bilaterally and deep tendon reflexes 2+ bilaterally Extrem General: Yes capillary refill normal, Yes no clubbing, cyanosis or edema and Yes no calf tenderness Results Reviewed Results Reviewed: XR LUMBOSACRAL SPINE 05/16/24 CLINICAL INFORMATION: M54.32 - Sciatica, left side COMPARISON: 12/29/2016. TECHNIQUE: Three views of the lumbosacral spine. FINDINGS: There is a trace levoconvex scoliosis. There is a normal lumbar lordosis. There is no subluxation. There are no fractures, compression deformities, or suspicious bone lesions. There is mild to moderate disc and facet degeneration L4-S1. Disc spaces otherwise preserved. Normal-appearing SI joints and sacrum. Mild vascular calcifications in the soft tissues. IMPRESSION: 1. No acute findings lumbar spine. 2. Mild to moderate degenerative spondylosis relatively confined to L4-S1. Assessment & Plan Assessment & Plan (1) Left sided sciatica: Code(s): M54.32 - Sciatica, left side Category: Medical (2) Lumbosacral spondylosis: Code(s): M47.817 - Spondylosis without myelopathy or radiculopathy, lumbosacral region Category: Medical (3) H/O lumbar discectomy: Comment: 1997 Code(s): Z98.890 - Other specified postprocedural states Category: Surgical (4) Lumbar degenerative disc disease: Code(s): M51.369 - Other intervertebral disc degeneration, lumbar region without mention of lumbar back pain or lower extremity pain Category: Medical Plan The management plan prioritizes treatment of the left-sided sciatica with the initiation of physical therapy to assess symptomatic improvement. Utilizing physical therapy as an initial intervention aligns with insurance directives, allowing further imaging decisions to be based on response. Gabapentin will be continued to alleviate symptoms, with discussions clarifying its safety and tem porary nature. A lidocaine patch is prescribed for topical relief, coupled with naproxen for inflammatory control, with detailed administration guidance provided. The patient is counseled on the necessity of avoiding simultaneous NSAID use to prevent adverse effects. The comprehensive approach facilitates symptom control while progressing with conservative treatment. All questions and concerns have been answered and patient agreed with the treatment plan. Follow up after PT and sooner as needed. Patient was informed and verbally consented to the use of an ambient scribe for clinic note documentation during this visit. Orders: Orders PT Evaluation and Treatment Today M47.817 - Spondylosis without myelopathy or radiculopathy, lumbosacral region, M54.32 - Sciatica, left side, Z98.890 - Other specified postprocedural states Medications: New lidocaine 5% leave on most painful area for up to 12 hrs topically daily; 30 days 30 ea 0RF pain M47.817 - Spondylosis without myelopathy or radiculopathy, lumbosacral region, M54.32 - Sciatica, left side naproxen Take it with food and full glass of water. Avoid other NSAIDs. 500 mg PO BID PRN 60 tabs 0RF pain M47.817 - Spondylosis without myelopathy or radiculopathy, lumbosacral region, M54.32 - Sciatica, left side Patient Instructions: During this visit, we discussed the nature and possible origins of the patient's left-sided sciatica. We reviewed the initial use of physical therapy to assess its impact on pain symptoms, postponing further imaging such as MRI based on therapy outcomes. The patient expressed concerns about gabapentin, which were addressed by explaining its aim for temporary sciatic symptom relief rather than chronic use purely for analgesic purposes. I have prescribed a lidocaine patch and naproxen for additional management, ensuring the patient understands the risks and administration guidelines. We underscored the importance of adherence to therapy and medication instructions and revisiting this plan following therapy evaluation. Arranging follow-up aligned with physical therapy outcomes was emphasized. - Start physical therapy as directed and assess symptom improvement. - Continue gabapentin as prescribed for sciatic pain; report any adverse effects. - Apply lidocaine patch on the lower back for up to 12 hours; discontinue if irritation occurs. - Take naproxen as needed with food and a full glass of water; avoid other NSAIDs concurrently. - Adhere to therapy guidelines and return for follow-up if pain worsens or new symptoms arise. - Engage in prescribed home exercises and use heat or warm showers for symptom relief if feasible. Coding Level of Care Code New Pt Level 4 (87200) Complex EM visit Add On G2211 Diagnoses Left sided sciatica M54.32 Lumbosacral spondylosis M47.817 H/O lumbar discectomy Z98.890 Lumbar degenerative disc disease M51.369
[2024-06-07 08:38] VITALS: BP 132/85; PULSE 87; O2SAT 97; BMI 30.4
== END 2024-06-07 09:08 | disposition home or self-care (01) ==
LOC: HO.PMC 08:25
PROVIDERS: PCP Internal Medicine; Referring Provider Internal Medicine; Visit Provider Nurse Practitioner Family
DX: M54.32 Sciatica, left side (principal); M47.817 Spondylosis without myelopathy or radiculopathy, lumbosacral region; Z98.890 Other specified postprocedural states; M51.369 Other intervertebral disc degeneration, lumbar region without mention of lumbar back pain or lower extremity pain
CPT/HCPCS: 99204; G2211

== ENCOUNTER → 2024-06-07 08:24 | Outpatient (BNVA) | payer OTHER, SELFPAY | PROVIDERS: PCP Internal Medicine; Referring Provider Internal Medicine; Visit Provider Nurse Practitioner Family | DX: M54.32 Sciatica, left side (principal); M47.817 Spondylosis without myelopathy or radiculopathy, lumbosacral region; M51.369 Other intervertebral disc degeneration, lumbar region without mention of lumbar back pain or lower extremity pain; Z98.890 Other specified postprocedural states | CPT/HCPCS: 99202 ==